=== PATIENT | female | born 1985 | race Caucasian/White ===

== ENCOUNTER 2017-01-29 05:16 | Emergency (ER) | payer MEDICAID, OTHER ==
[~2017-01-29] VITALS: Ht 162.6 cm; Wt 82.9 kg
[2017-01-29 05:23] VITALS: BP 153/77; PULSE 59; RESP 20; TEMP 97.8; O2SAT 100
[2017-01-29 05:34] VITALS: BP 153/77; PULSE 59; RESP 20; TEMP 97.8; O2SAT 100
[2017-01-29] MEDS ORDERED: PREN29TA PO (05:34)
[2017-01-29 06:07] LABS: AUTOMATED NEUTROPHIL # 8.7 TH/MM3 (1.8-7.7); BASOPHIL # 0.1 TH/MM3 (0-0.2); BASOPHIL % 0.5 % (0.0-2.0); EOSINOPHIL # 0.5 TH/MM3 (0-0.4); EOSINOPHIL % 4.3 % (0.0-4.0); HEMATOCRIT 38.7 % (35.0-46.0); HEMO FLAGS DIFF FINAL; LYMPH % 14.3 % (9.0-44.0); LYMPHOCYTE # 1.6 TH/MM3 (1.0-4.8); MEAN CELL VOLUME 84.5 FL (80.0-100.0); MEAN CORPUSCULAR HEMOGLOBIN 28.4 PG (27.0-34.0); MEAN CORPUSCULAR HGB CONC 33.6 % (32.0-36.0); MONO % 5.6 % (0.0-8.0); NEUT % 75.3 % (16.0-70.0); PLATELET COUNT 239 TH/MM3 (150-450); RED BLOOD COUNT 4.58 MIL/MM3 (4.00-5.30); WHITE BLOOD COUNT 11.5 TH/MM3 (4.0-11.0)
[2017-01-29 06:16] LABS: CHLORIDE 107 MEQ/L (98-107); POTASSIUM 3.7 MEQ/L (3.5-5.1); SODIUM (NA) 136 MEQ/L (136-145)
[2017-01-29 06:19] LABS: ANION GAP 7 MEQ/L (5-15); BICARBONATE 22.4 MEQ/L (21.0-32.0); BLOOD UREA NITROGEN 6 MG/DL (7-18)
--- NOTE | 2017-01-29 06:21 | PD ---
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 The patient is now having watery diarrhea. She has had diarrhea 3 times in the last 24 hours. She denies any abdominal pain, nausea, vomiting or fever. She is 25 weeks . FORMERLY [facility], [facility]–1983 Past Medical History Reproductive: Yes (CURRENTLY 25 WEEKS ) Immunizations Current: Yes Tetanus Vaccination: > 5 Years Influenza Vaccination: Yes ?: : 1 Past Surgical History Other Surgery: Yes (BREAST AUGMENTATION) Social History Alcohol Use: No Tobacco Use: No Substance Use: No Allergies-Medications (Allergen,Severity, Reaction): Coded Allergies: No Known Allergies (Unverified , 01/29/17) Reported Meds & Prescriptions Reported Meds & Active Scripts Active Reported Plus Iron 29-1 mg ( Vit-Iron Carbonyl) 29 Mg Iron-1 Mg Tab 1 Tab PO DAILY Review of Systems Except as stated in HPI: all other systems reviewed are Neg Physical Exam Narrative GENERAL: The patient is alert, oriented 3, fairly well-hydrated appearing in no apparent distress. Her vital signs show blood pressure 153/77 but are otherwise normal. SKIN: Focused skin assessment warm/dry. HEAD: Atraumatic. Normocephalic. EYES: Pupils equal and round. No scleral icterus. No injection or drainage. ENT: No nasal bleeding or discharge. Mucous membranes pink and moist. NECK: Trachea midline. No JVD. CARDIOVASCULAR: Regular rate and rhythm. No murmur appreciated. RESPIRATORY: No accessory muscle use. Clear to auscultation. Breath sounds equal bilaterally. GASTROINTESTINAL: Abdomen soft, non-tender, nondistended. Hepatic and splenic margins not palpable. No guarding or rebound is present. MUSCULOSKELETAL: No obvious deformities. No clubbing. No cyanosis. No edema. NEUROLOGICAL: Awake and alert. No obvious cranial nerve deficits. Motor grossly within normal limits. Normal speech. PSYCHIATRIC: Appropriate mood and affect; insight and judgment normal. Data Data Last Documented VS Vital Signs Date Time Temp Pulse Resp B/P (MAP) Pulse Ox O2 Delivery O2 Flow Rate FiO2 01/29/17 05:34 97.8 59 20 153/77 (102) 100 Orders Orders Complete Blood Count With Diff (01/29/17 05:43) Comprehensive Metabolic Panel (01/29/17 05:43) C Diff Toxin Pcr (01/29/17 05:43) Rotavirus Ag Detection (Stool) (01/29/17 05:49) Enteric Path (Stool) (01/29/17 05:49) Giardia Antigen (Stool) (01/29/17 05:49) Labs Laboratory Tests Test 01/29/17 05:55 White Blood Count 11.5 TH/MM3 Red Blood Count 4.58 MIL/MM3 Hemoglobin 13.0 GM/DL Hematocrit 38.7 % Mean Corpuscular Volume 84.5 FL Mean Corpuscular Hemoglobin 28.4 PG Mean Corpuscular Hemoglobin Concent 33.6 % Red Cell Distribution Width 12.0 % Platelet Count 239 TH/MM3 Mean Platelet Volume 9.1 FL Neutrophils (%) (Auto) 75.3 % Lymphocytes (%) (Auto) 14.3 % Monocytes (%) (Auto) 5.6 % Eosinophils (%) (Auto) 4.3 % Basophils (%) (Auto) 0.5 % Neutrophils # (Auto) 8.7 TH/MM3 Lymphocytes # (Auto) 1.6 TH/MM3 Monocytes # (Auto) 0.6 TH/MM3 Eosinophils # (Auto) 0.5 TH/MM3 Basophils # (Auto) 0.1 TH/MM3 CBC Comment DIFF FINAL Differential Comment Blood Urea Nitrogen 6 MG/DL Creatinine 0.55 MG/DL Random Glucose 88 MG/DL Total Protein 6.6 GM/DL Albumin 2.7 GM/DL Calcium Level 8.2 MG/DL Alkaline Phosphatase 109 U/L Aspartate Amino Transf (AST/SGOT) 15 U/L Alanine Aminotransferase (ALT/SGPT) 19 U/L Total Bilirubin 0.2 MG/DL Sodium Level 136 MEQ/L Potassium Level 3.7 MEQ/L Chloride Level 107 MEQ/L Carbon Dioxide Level 22.4 MEQ/L Anion Gap 7 MEQ/L Estimat Glomerular Filtration Rate 128 ML/MIN [facility] Medical Decision Making Medical Screen Exam Complete: Yes Emergency Medical Condition: Yes Medical Record Reviewed: Yes Differential Diagnosis Clostridium difficile, viral gastroenteritis, rotavirus-unlikely, Giardia- unlikely, bacterial enteritis, electrolyte disorder Narrative Course The patient does not want to remain here in [place] for several hours, this is likely the time but will take her C. difficile results to come back to us. The specimen has to be sent from this hospital to [facility]. We are testing her for clostridium difficile, Giardia, routine stool pathogens and rotavirus. Metronidazole is category B and the patient is 25 weeks and should be safe for this patient. The patient will get a prescription for metronidazole to take if it is positive for clostridium difficile. It is suggested she may wish to talk it over with Dr. Desai, her mail room clerk before taking metronidazole. Diagnosis Primary Impression: Infectious diarrhea in adult patient Med/Other Pt SpecificInfo: Prescription(s) given Scripts Metronidazole (Metronidazole) 500 Mg Tab 500 MG PO TID for Infection for 10 Days, TAB 0 Refills Prov: Len Horn MD 01/29/17 Disposition: 01 DISCHARGE HOME Condition: Stable Len Horn MD Jan 29, 2017 06:20
[2017-01-29 06:22] LABS: ALT (GPT) 19 U/L (10-53); AST (GOT) 15 U/L (15-37)
[2017-01-29 06:23] LABS: GLOMERULAR FILTRATION RATE 128 ML/MIN (>89)
[2017-01-29 06:24] LABS: TOTAL BILIRUBIN ADULT 0.2 MG/DL (0.2-1.0)
[2017-01-29 06:25] LABS: ALKALINE PHOSPHATASE 109 U/L (45-117)
[2017-01-29] MEDS ORDERED: METR1TAB76 PO (06:29)
[2017-01-29 07:01] VITALS: BP 145/70; PULSE 60; RESP 18; O2SAT 100
[2017-01-29 09:39] LABS: C. DIFF EPI 027 PRESUMPTIVE NEGATIVE (NEGATIVE)
== END 2017-01-29 07:04 | disposition home or self-care (01) ==
LOC: PHED 05:16
DX: O26.892 Other specified pregnancy related conditions, second trimester (principal); A09 Infectious gastroenteritis and colitis, unspecified; Z3A.25 25 weeks gestation of pregnancy
CPT/HCPCS: 80053; 85025; 87329; 87425; 87493; 87506; 99283

== ENCOUNTER 2017-02-13 15:15 | Emergency (ER) | payer OTHER ==
[~2017-02-13 15:15] MED LIST: METR1TAB76 PO; PREN29TA PO
--- NOTE | 2017-02-13 16:04 | PD ---
HPI Chief Complaint swelling, concerned she has preE Date Seen: Feb 13, 2017 Time Seen: 15:59 Travel History International Travel<30 Days: No Contact w/Intl Traveler<30Days: No Known Affected Area: No History of Present Illness HPI Pt is a 31y/o G1 @ 27.2wks. She has PNC with Dr. Reeves. She states that since Monday her feet have been very swollen to the point of "being shiny". She has a famhx of HTN and preE and states that she took her BP over the weekend at [facility] (after resting 10 mins) and it was 140s/90s. She had a colleague check her today and states it was 140/80. She states normal for her is 130s/80s. She denies DELGADO but states over the weekend she looked at her phone and "saw black spots". No LOF, VB, ctx. +FM. Weeks Gestation: 27 Para: 0 : 1 History Past Medical History Medical History: Denies Significant Hx Obstetric History Obstetric History 1. current Past Surgical History Narrative Surgical breast augmentation wisdom teeth extraction Family History Narrative Family History HTN Social History Alcohol Use: No Tobacco Use: No Substance Abuse: No Allergies-Medications (Allergen,Severity, Reaction): Coded Allergies: No Known Allergies (Unverified , 01/29/17) Home Meds Active Scripts Metronidazole (Metronidazole) 500 Mg Tab, 500 MG PO TID for Infection for 10 Days, TAB 0 Refills Prov:Len Horn MD 01/29/17 Reported Medications Vit-Iron Carbonyl ( Plus Iron 29-1 mg) 29 Mg Iron-1 Mg Tab, 1 TAB PO DAILY for Nutritional Supplement, #30 TAB 0 Refills 01/29/17 Review of Systems Except as stated in HPI: all other systems reviewed are Neg Physical Exam Narrative General: well developed, well nourished, no acute distress HEENT: normocephalic atraumatic, extraocular movements intact, neck supple Abdomen: soft, gravid, nontender, nondistended Extremities: full range of motion, no edema, no clonus, 2+ reflexes Skin: normal coloration, no rashes, no suspicious skin lesions noted Neurologic: cranial nerves 2-12 grossly intact, normal muscle tone, normal gait Psychiatric: normal mood and affect, appropriate FHTs: 145, +accels, no decels, moderate variability, age appropriate, reactive [place]: quiet Cvx: deferred Data Data Vital Signs Reviewed: Yes Orders Orders Vital Signs (Adult) .ON ADMISSION (02/13/17 15:57) ^ Labor Status (02/13/17 15:57) Urinalysis - C+S If Indicated (02/13/17 15:57) ^ Non Stress Test (02/13/17 15:57) Cbc No Diff, Includes Plts (02/13/17 15:57) MDM Plan 31y/o G1 @ 27.2wks with swelling and elevated BP. -- pt reports swelling is gone since arrive to triage -- initial BP 150s/80s then recheck 130s/70s -- PIH labs ordered -- pt asx -- FHTs cat 1 Diagnosis Diagnosis: Primary Impression: 27 weeks gestation of Additional Impressions: Bilateral swelling of feet Elevated blood pressure affecting in second trimester, antepartum Analia John MD Feb 13, 2017 16:04
[2017-02-13 16:18] LABS: BACTERIA, URINE RARE /hpf; BLOOD, URINE NEG (NEG); COMMENT (UR) CULT NOT INDICATED; CULTURE IF INDICATED CULT NOT INDICATED; GLUCOSE,URINE NEG (NEG); KETONE, URINE NEG (NEG); NITRITE,URINE NEG (NEG); PH, URINE 6.5 (5.0-8.5); SQUAMOUS EPITHELIAL CELL URINE 1 /hpf (0-5); URINE COLOR LIGHT-YELLOW (YELLW/STRAW)
[2017-02-13 16:19] LABS: HEMATOCRIT 34.1 % (35.0-46.0); MEAN CELL VOLUME 84.8 FL (80.0-100.0); MEAN CORPUSCULAR HGB CONC 34.2 % (32.0-36.0); PLATELET COUNT 226 TH/MM3 (150-450); RED BLOOD COUNT 4.02 MIL/MM3 (4.00-5.30); RED CELL DISTRIBUTION WIDTH 12.7 % (11.6-17.2); REVIEW FLAG FINAL; WHITE BLOOD COUNT 11.6 TH/MM3 (4.0-11.0)
[2017-02-13 16:28] VITALS: BP 137/87; PULSE 62
[2017-02-13 16:29] VITALS: RESP 18
[2017-02-13 16:30] VITALS: BP 139/88; PULSE 70
[2017-02-13 16:30] LABS: ALT (GPT) 23 U/L (10-53); ANION GAP 8 MEQ/L (5-15); AST (GOT) 17 U/L (15-37); BICARBONATE 22.3 MEQ/L (21.0-32.0); BLOOD UREA NITROGEN 7 MG/DL (7-18); CHLORIDE 106 MEQ/L (98-107); GLOMERULAR FILTRATION RATE 104 ML/MIN (>89); POTASSIUM 3.9 MEQ/L (3.5-5.1); SODIUM (NA) 136 MEQ/L (136-145)
[2017-02-13 16:32] LABS: ALKALINE PHOSPHATASE 140 U/L (45-117); TOTAL BILIRUBIN ADULT 0.1 MG/DL (0.2-1.0)
[2017-02-13 16:45] VITALS: BP 129/80; PULSE 59
== END 2017-02-13 16:58 | disposition home or self-care (01) ==
LOC: HOBED 15:15
DX: O16.2 Unspecified maternal hypertension, second trimester (principal); O26.892 Other specified pregnancy related conditions, second trimester; R22.43 Localized swelling, mass and lump, lower limb, bilateral; H53.8 Other visual disturbances; Z3A.27 27 weeks gestation of pregnancy
CPT/HCPCS: 80053; 81001; 82570; 84156; 85027; 99284

== ENCOUNTER 2017-03-07 12:19 | Inpatient (IN) | payer OTHER ==
[~2017-03-07] VITALS: Ht 162.6 cm; Wt 90.0 kg
[2017-03-07] VITALS (23 sets, daily range): BP systolic 129–176; BP diastolic 74–100; PULSE 62–107; RESP 18–20; TEMP 98.4–98.7
--- NOTE | 2017-03-07 12:56 | PD ---
HPI Chief Complaint Elevated blood pressure in the office Date Seen: Mar 07, 2017 Time Seen: 12:54 Travel History International Travel<30 Days: No Contact w/Intl Traveler<30Days: No Known Affected Area: No History of Present Illness HPI 31-year-old who is at 30 weeks and 3 days was seen in the office today with elevated blood pressure. Patient was seen earlier in January with a blood pressure elevation in the OB ED with improvement all she was here and normal blood work and a normal protein creatinine ratio. Patient states that she has had peripheral edema but no other signs or symptoms and she is continuing to work full-time. Weeks Gestation: 30 (30.3) Para: 0 : 3 History Past Medical History Medical History: Denies Significant Hx Past Surgical History Narrative Surgical Breast augmentation tooth extraction Family History Narrative Family History Hypertension Social History Alcohol Use: No Tobacco Use: No Substance Abuse: No Allergies-Medications (Allergen,Severity, Reaction): Coded Allergies: No Known Allergies (Unverified , 01/29/17) Home Meds Reported Medications Vit-Iron Carbonyl ( Plus Iron 29-1 mg) 29 Mg Iron-1 Mg Tab, 1 TAB PO DAILY for Nutritional Supplement, #30 TAB 0 Refills 01/29/17 Discontinued Scripts Metronidazole (Metronidazole) 500 Mg Tab, 500 MG PO TID for Infection for 10 Days, TAB 0 Refills Prov:Len Horn MD 01/29/17 Review of Systems Except as stated in HPI: all other systems reviewed are Neg Physical Exam Narrative GENERAL: Well-nourished, well-developed patient. SKIN: Warm and dry. HEAD: Normocephalic and atraumatic. EYES: No scleral icterus. No injection or drainage. ENT: No nasal drainage noted. Mucous membranes pink. Airway patent. NECK: Supple, trachea midline. No JVD. CARDIOVASCULAR: Regular rate and rhythm without murmurs, gallops, or rubs. RESPIRATORY: Breath sounds equal bilaterally. No accessory muscle use. ABDOMEN/GI: Abdomen soft, non-tender, bowel sounds present, no rebound, no guarding Gravid to [-30] weeks size Fundal Height: [-] GENITOURINARY: Deferred External Genitalia: intact and normal in appearance BUS glands: [-] Cervix: [-] Dilatation: [-] Effacement: [-] Station: [-] Presentation: [-] Membranes: [intact or ruptured] Uterine Contractions: [-] FHT's: Category: [-1] Baseline: [-140] Reactive: [-Moderate] Variability: [Moderate-] Decels: [-Absent] EXTREMITIES: No cyanosis 1+ edema BACK: Nontender without obvious deformity. No CVA tenderness. NEUROLOGICAL: Awake and alert. Motor and sensory grossly within normal limits. Five out of 5 muscle strength in all muscle groups. Normal speech. Data Data Vital Signs Reviewed: Yes Orders Orders Vital Signs (Adult) .ON ADMISSION (03/07/17 12:52) ^ Labor Status (03/07/17 12:52) Urinalysis - C+S If Indicated (03/07/17 12:52) ^ Non Stress Test (03/07/17 12:52) Diet Liquid (03/07/17 Lunch) Cbc No Diff, Includes Plts (03/07/17 12:52) Comprehensive Metabolic Panel (03/07/17 12:52) Uric Acid (03/07/17 12:52) Protein Creat Ratio, Random Ur (03/07/17 12:52) Labs Laboratory Tests Test 03/07/17 12:45 03/07/17 12:57 Urine Color YELLOW Urine Turbidity CLEAR Urine pH 6.0 Urine Specific Craig 1.010 Urine Protein 30 mg/dL Urine Glucose (UA) NEG mg/dL Urine Ketones NEG mg/dL Urine Occult Blood NEG Urine Nitrite NEG Urine Bilirubin NEG Urine Urobilinogen LESS THAN 2.0 MG/DL Urine Leukocyte Esterase NEG Urine RBC LESS THAN 1 /hpf Urine WBC 2 /hpf Urine Squamous Epithelial Cells 1 /hpf Urine Bacteria RARE /hpf Microscopic Urinalysis Comment CULT NOT INDICATED White Blood Count 9.6 TH/MM3 Red Blood Count 4.26 MIL/MM3 Hemoglobin 12.4 GM/DL Hematocrit 36.4 % Mean Corpuscular Volume 85.3 FL Mean Corpuscular Hemoglobin 29.0 PG Mean Corpuscular Hemoglobin Concent 34.0 % Red Cell Distribution Width 13.3 % Platelet Count 202 TH/MM3 Mean Platelet Volume 10.9 FL Urine Random Creatinine 81 MG/DL Urine Random Total Protein 32 MG/DL Urine Protein/Creatinine Ratio 0.40 Blood Urea Nitrogen 13 MG/DL Creatinine 0.96 MG/DL Random Glucose 107 MG/DL Total Protein 6.1 GM/DL Albumin 2.6 GM/DL Calcium Level 8.2 MG/DL Uric Acid 6.1 MG/DL Alkaline Phosphatase 199 U/L Aspartate Amino Transf (AST/SGOT) 63 U/L Alanine Aminotransferase (ALT/SGPT) 111 U/L Total Bilirubin 0.2 MG/DL Sodium Level 139 MEQ/L Potassium Level 3.9 MEQ/L Chloride Level 107 MEQ/L Carbon Dioxide Level 23.1 MEQ/L Anion Gap 9 MEQ/L Estimat Glomerular Filtration Rate 67 ML/MIN [facility] Medical Record Reviewed: Yes Plan 31-year-old patient at 30 weeks and 3 days with elevated blood pressure, elevated protein creatinine ratio, elevated liver enzymes most consistent with preeclampsia Will order steroids and ultrasound for growth Repeat bloodwork Admission to the hospital, Dr. Reeves is aware Diagnosis Diagnosis: Primary Impression: Pre-eclampsia affecting , antepartum Additional Impression: 30 weeks gestation of Gabi Kendall MD Mar 07, 2017 12:56
[2017-03-07 13:47] LABS: HEMATOCRIT 36.4 % (35.0-46.0); HEMOGLOBIN 12.4 GM/DL (11.6-15.3); MEAN CELL VOLUME 85.3 FL (80.0-100.0); MEAN PLATELET VOLUME 10.9 FL (7.0-11.0); PLATELET COUNT 202 TH/MM3 (150-450); RED BLOOD COUNT 4.26 MIL/MM3 (4.00-5.30); RED CELL DISTRIBUTION WIDTH 13.3 % (11.6-17.2); WHITE BLOOD COUNT 9.6 TH/MM3 (4.0-11.0)
[2017-03-07 13:51] LABS: BACTERIA, URINE RARE /hpf; BILIRUBIN, URINE NEG (NEG); BLOOD, URINE NEG (NEG); GLUCOSE,URINE NEG (NEG); KETONE, URINE NEG (NEG); NITRITE,URINE NEG (NEG); SQUAMOUS EPITHELIAL CELL URINE 1 /hpf (0-5); URINE COLOR YELLOW (YELLW/STRAW); URINE LEUKOCYTE ESTERASE NEG (NEG)
[2017-03-07 14:07] LABS: ALBUMIN 2.6 GM/DL (3.4-5.0); ALT (GPT) 111 U/L (10-53); AST (GOT) 63 U/L (15-37); BICARBONATE 23.1 MEQ/L (21.0-32.0); BLOOD UREA NITROGEN 13 MG/DL (7-18); CALCIUM 8.2 MG/DL (8.5-10.1); CHLORIDE 107 MEQ/L (98-107); CREATININE 0.96 MG/DL (0.50-1.00); GLOMERULAR FILTRATION RATE 67 ML/MIN (>89); GLUCOSE,RANDOM 107 MG/DL (74-106); SODIUM (NA) 139 MEQ/L (136-145)
[2017-03-07 14:13] LABS: ALKALINE PHOSPHATASE 199 U/L (45-117); TOTAL BILIRUBIN ADULT 0.2 MG/DL (0.2-1.0); TOTAL PROTEIN 6.1 GM/DL (6.4-8.2)
[2017-03-07] MEDS ORDERED: LACTATED RINGER'S 1000 ML INJ 1,000 ML IV SCH (14:26)
[2017-03-07] MEDS ORDERED: ONDANSETRON HCL 4 MG/2 ML VIAL IV PUSH PRN (14:30)
[2017-03-07] MEDS ORDERED: ZOLPIDEM TARTRATE 5 MG TAB PO PRN (14:30)
[2017-03-07] MEDS ORDERED: ONDANSETRON ODT 4 MG TAB PO PRN (14:30)
[2017-03-07] MEDS ORDERED: DOCUSATE SODIUM 100 MG CAP PO PRN (14:30)
[2017-03-07] MEDS ORDERED: SODIUM CHLORIDE 0.9% FLUSH 10 ML FLUSH IV FLUSH PRN (14:30)
[2017-03-07] MEDS ORDERED: ACETAMINOPHEN 325 MG TAB PO PRN (14:30)
[2017-03-07] MEDS ORDERED: CALCIUM GLUCONATE 10% 1 GM/10 ML VIAL IV PUSH PRN ×2 (14:30→17:45)
[2017-03-07] MEDS: BETAMETHASONE SOD PHOS/ACETATE SUSP 30 MG/5 ML VIAL IM SCH (14:41)
[2017-03-07] MEDS ORDERED: NIFEdipine 10 MG CAP ONE ×2 (17:08→17:19)
[2017-03-07] MEDS ORDERED: NIFEdipine 10 MG CAP PO SCH (17:10)
[2017-03-07] MEDS ORDERED: NIFEdipine 20 MG CAP PO PRN (17:25)
[2017-03-07] MEDS ORDERED: MAGNESIUM SULFATE 40 GM PREMIX 1,000 ML IV SCH (17:41)
[2017-03-07] MEDS: LACTATED RINGER'S 1000 ML INJ 1,000 ML IV SCH (20:48)
[2017-03-07] MEDS: SODIUM CHLORIDE 0.9% FLUSH 10 ML FLUSH IV FLUSH SCH (21:00)
[2017-03-08] VITALS (32 sets, daily range): BP systolic 122–154; BP diastolic 65–107; PULSE 63–108; RESP 16–20; TEMP 97.6–98.2; O2SAT 98–100
[2017-03-08 05:53] LABS: HEMATOCRIT 40.1 % (35.0-46.0); HEMOGLOBIN 13.5 GM/DL (11.6-15.3); MEAN CELL VOLUME 85.5 FL (80.0-100.0); MEAN CORPUSCULAR HEMOGLOBIN 28.7 PG (27.0-34.0); MEAN CORPUSCULAR HGB CONC 33.5 % (32.0-36.0); PLATELET COUNT 229 TH/MM3 (150-450); RED CELL DISTRIBUTION WIDTH 13.4 % (11.6-17.2); WHITE BLOOD COUNT 18.8 TH/MM3 (4.0-11.0)
[2017-03-08 06:17] LABS: ALBUMIN 2.9 GM/DL (3.4-5.0); ALT (GPT) 163 U/L (10-53); AST (GOT) 81 U/L (15-37); BICARBONATE 19.2 MEQ/L (21.0-32.0); BLOOD UREA NITROGEN 12 MG/DL (7-18); CALCIUM 8.2 MG/DL (8.5-10.1); CHLORIDE 104 MEQ/L (98-107); GLOMERULAR FILTRATION RATE 83 ML/MIN (>89); GLUCOSE,RANDOM 123 MG/DL (74-106); SODIUM (NA) 135 MEQ/L (136-145)
[2017-03-08 06:19] LABS: ALKALINE PHOSPHATASE 233 U/L (45-117); TOTAL BILIRUBIN ADULT 0.2 MG/DL (0.2-1.0); TOTAL PROTEIN 7.1 GM/DL (6.4-8.2)
[2017-03-08] MEDS: BETAMETHASONE SOD PHOS/ACETATE SUSP 30 MG/5 ML VIAL IM SCH (08:31)
[2017-03-08] MEDS ORDERED: MULTIVIT/MIN/PREN/FOL AC/IRON PRENATAL TAB PO SCH (09:00)
[2017-03-08] MEDS: SODIUM CHLORIDE 0.9% FLUSH 10 ML FLUSH IV FLUSH SCH ×2 (09:00→21:00)
[2017-03-08] MEDS: LACTATED RINGER'S 1000 ML INJ 1,000 ML IV SCH ×2 (09:15→20:36)
[2017-03-08] MEDS ORDERED: CITRIC ACID-SODIUM CITRATE LIQ 30 ML UDC ONE (11:12)
[2017-03-08] MEDS ORDERED: MORPHINE SULFATE PF 5 MG/10 ML VIAL ONE (11:16)
[2017-03-08] MEDS ORDERED: EPIDURAL-DO NOT ADMINISTER ANTICOAGULANTS PRN (11:28)
[2017-03-08] MEDS ORDERED: CITRIC ACID-SODIUM CITRATE LIQ 30 ML UDC PO SCH (12:00)
[2017-03-08] MEDS ORDERED: ceFAZolin 2 GM PREMIX 50 ML IV SCH (12:00)
[2017-03-08] MEDS ORDERED: LACTATED RINGER'S 1000 ML IV ONE (12:00)
[2017-03-08] MEDS ORDERED: LACTATED RINGER'S 1000 ML IV SCH (12:30)
[2017-03-08] MEDS ORDERED: SIMETHICONE 80 MG CHEWABLE TAB PO PRN (13:00)
[2017-03-08] MEDS ORDERED: OXYTOCIN 30 UNITS-500ML PREMIX 500 ML IV ONE (13:00)
[2017-03-08] MEDS ORDERED: ONDANSETRON HCL 4 MG/2 ML VIAL IV PUSH PRN (13:00)
[2017-03-08] MEDS ORDERED: ZOLPIDEM TARTRATE 5 MG TAB PO PRN (13:00)
[2017-03-08] MEDS ORDERED: SODIUM CHLORIDE 0.9% FLUSH 10 ML FLUSH IV FLUSH PRN (13:00)
[2017-03-08] MEDS ORDERED: oxyCODONE/ACETAMINOPHEN 5 MG/325 MG TAB PO PRN ×2 (13:00)
[2017-03-08] MEDS ORDERED: MAGNESIUM SULFATE 40 GM ONE (13:21)
[2017-03-08] MEDS ORDERED: CALCIUM GLUCONATE 10% 1 GM/10 ML VIAL IV PUSH PRN (14:00)
[2017-03-08] MEDS ORDERED: ACETAMINOPHEN 1000 MG/100 ML 65 ML IV ONE (14:00)
[2017-03-08] MEDS ORDERED: MAGNESIUM SULFATE 40 GM PREMIX 1,000 ML IV SCH (14:00)
[2017-03-08] MEDS ORDERED: diphenhydrAMINE HCL 50 MG/ML VIAL ONE (14:24)
[2017-03-08] MEDS ORDERED: EPIDURAL-DIPHENHYDRAMINE HCL 50 MG/ML VIAL IV PUSH PRN (15:15)
[2017-03-08] MEDS ORDERED: EPIDURAL-DIPHENHYDRAMINE HCL 50 MG CAP PO PRN (15:15)
[2017-03-08] MEDS ORDERED: EPIDURAL-NALOXONE HCL 0.4 MG/ML AMP IV PUSH PRN (15:15)
[2017-03-08] MEDS ORDERED: EPIDURAL-NO SYSTEMIC NARCOTICS PRN (15:15)
--- NOTE | 2017-03-08 20:07 | MH ---
cc: ELINA REEVES DATE OF ADMISSION 03/07/2017 REASON FOR ADMISSION Hypertension with proteinuria, rule out severe preeclampsia. HISTORY OF THE PRESENT ILLNESS Maricarmen is a 33-year-old white female para 0-0-0-0 whose last menstrual period and ultrasound put her at a little over 30 weeks. She presents to the office on Monday with elevated blood pressure and a little protein in her urine. She was sent over to labor and delivery for laboratory workup to ensure she did not have preeclampsia. She is having continued high blood pressure. She does have proteinuria. We will wait for her labs and decide on the course of action. PAST OB HISTORY She is para 0-0-0-0. GYNECOLOGIC HISTORY Her Pap smear was normal in 07/2016. Her Chlamydia, gonorrhea and trichomonas are negative. PAST MEDICAL HISTORY Negative. PAST SURGICAL HISTORY Is remarkable for an augmentation mammoplasty. SOCIAL HISTORY Never smoker. Nondrinker. She does not take drugs. She lives with her domestic partner. FAMILY HISTORY Noncontributory. ALLERGIES NO KNOWN DRUG ALLERGIES. MEDICATIONS Her current medications: vitamins one p.o. q.day. REVIEW OF SYSTEMS She does not have any headaches, scotoma. She has no shortness of breath, chest pressure or chest pain. She has no upper abdominal pain. No right upper quadrant pain. The OB she reports good movement. She denies bleeding or rupture of membranes. She denies any swelling. ASSESSMENT AND PLAN 1. Intrauterine at 30+ weeks. 2. Hypertension with proteinuria. I suspect she may have preeclampsia. Will have to get her lab work and decide on the course of action. She actually may be severe because her blood pressures are quite high. We plan to monitor her blood pressure, repeat her labs in the morning and go from there. R. Elina Reeves MD RJV/KK /7:13 PM /7:42 PM
[2017-03-08] MEDS ORDERED: OXYTOCIN 30 UNITS-500ML PREMIX 500 ML IV PRN (23:00)
[2017-03-09] VITALS (15 sets, daily range): BP systolic 119–153; BP diastolic 64–99; PULSE 58–80; RESP 16–18; TEMP 97.8–98.3; O2SAT 97
[2017-03-09 06:00] LABS: HEMOGLOBIN 10.8 GM/DL (11.6-15.3); MEAN CELL VOLUME 85.7 FL (80.0-100.0); MEAN CORPUSCULAR HEMOGLOBIN 28.1 PG (27.0-34.0); MEAN CORPUSCULAR HGB CONC 32.8 % (32.0-36.0); MEAN PLATELET VOLUME 10.6 FL (7.0-11.0); PLATELET COUNT 227 TH/MM3 (150-450); RED BLOOD COUNT 3.85 MIL/MM3 (4.00-5.30); RED CELL DISTRIBUTION WIDTH 13.4 % (11.6-17.2); WHITE BLOOD COUNT 34.8 TH/MM3 (4.0-11.0)
--- NOTE | 2017-03-09 07:07 | MP ---
cc: Sarbjit REEVES DATE OF SURGERY 03/08/2017 PREOPERATIVE DIAGNOSIS 1. Intrauterine at 30+ weeks 2. Severe preeclampsia 3. Non-inducible cervix POSTOPERATIVE DIAGNOSIS 1. Intrauterine at 30+ weeks 2. Severe preeclampsia 3. Non-inducible cervix 4. A lower uterine segment fibroid PROCEDURE A primary low transverse section and a myomectomy. ANESTHESIA Spinal SURGEON Quita Reeves MD FINDINGS Gravid uterus, a 30-week male infant, 's 7 and 8. The weight was 1230 grams. The fallopian tubes were normal. The ovaries were normal. Posterior and anterior cul-de-sac were normal. She did have a 3 cm fibroid directly over the lower uterine segment. COMPLICATIONS None COUNTS Counts were correct. ESTIMATED BLOOD LOSS 600 cc FLUIDS Crystalloids CONDITION The patient tolerated the procedure well, went to the recovery room in good condition. INDICATIONS FOR THIS PROCEDURE This is a young lady who came into the office yesterday with high blood pressure. We sent her over to labor and delivery for a workup of preeclampsia. She was found to have a significantly high blood pressure requiring medicine one-time for a blood pressure of greater than 160/110. Her blood pressures remained high. She had protein in her urine. Her liver function tests were markedly elevated. Her ALT went from 111-163 and her AST went from 63-81. I discussed this case in detail with the perinatologist. Because she had increased liver functions, very high blood pressure, protein in her urine, uric acid of 6.2, she felt that she needed to be delivered as I did. After discussing the risks and benefits and the reasoning for delivery of this baby so early with the patient, she agreed to proceed. PROCEDURE The patient was taken to the operating room, identified by name band and verbally. She was given a spinal anesthetic, prepped and draped in the usual sterile fashion for section. A time-out was taken and a Pfannenstiel incision was taken down to the fascia. Small bleeders were coagulated with the Bovie. The fascia was taken off the rectus muscle by blunt sharp dissection. The rectus muscles were already opened and the peritoneum was grasped with a hemostat so the peritoneum was opened under direct vision without difficulty. The incision was extended with care to avoid the urinary bladder. At this time, we noted there was a fibroid right over the lower uterine segment. I did not want to do a low vertical section so we made the incision around the fibroid and made a bladder flap, pushed the bladder out of harm's way, slowly dissected the fibroid away from the lower uterine segment pushing it downwards so we could make the incision. The incision was made into the lower uterine segment which was thick and not developed until the uterine cavity was entered. The uterine incision was extended with the surgeon's fingers and the vertex was grasped gently and with fundal pressure, delivered without difficulty. Hypopharynx and nasopharynx were suctioned gently. The remainder of the infant was delivered and the cord clamping was delayed 45 seconds. Cord was doubly clamped and cut and the baby was handed to the resuscitation team present. The cord blood was obtained. The placenta was delivered from the uterus. The uterus was curettaged twice. There was some bleeding from the edges of the scar and these were clamped with Hernandez clamps and the fibroid needed to be removed because I needed to close this incision and it was directly below the incision. At this point, I grasped the fibroid with a Chris and shelled it out without difficulty. The uterine incision could now easily be closed. It was closed with 0 Vicryl in a running fashion. The first layer was running locking, the second layer imbricating the first layer in a running fashion. At this point, there was a small bleeder which was tied off with a 3-0 chromic suture. The cul-de-sac and gutters were cleaned of blood and debris and a little bit of irrigation was used. The uterus was then delivered back into the abdomen and the rectus muscles were reapproximated using 0 Vicryl in a running fashion. The fascia was repaired in 0 Vicryl in a running fashion. Subcu was irrigated and small bleeders coagulated and closed with a 2-0 Vicryl in a subcuticular fashion. The skin was repaired with a 4-0 Monocryl in a subcutaneous fashion with excellent results. R. MD MANDA Coyle/CARRILLO /1:00 PM /6:47 AM
[2017-03-09 07:14] LABS: BANDS 3 % (0-6); LYMPHOCYTES 3 % (9-44); MONOCYTES 5 % (0-8); POLYS (SEG NEUTROPHILS) 89 % (16-70)
[2017-03-09] MEDS: SODIUM CHLORIDE 0.9% FLUSH 10 ML FLUSH IV FLUSH SCH (09:00)
[2017-03-09] MEDS: MULTIVIT/MIN/PREN/FOL AC/IRON PRENATAL TAB PO SCH (09:15)
[2017-03-09] MEDS: LACTATED RINGER'S 1000 ML INJ 1,000 ML IV SCH (09:15)
[2017-03-09] MEDS: IBUPROFEN 600 MG TAB PO PRN ×2 (15:29→21:23)
--- NOTE | 2017-03-09 15:42 | HHI.OB ---
Subjective Post Operative Day: 1 Objective Vitals/I&O Vital Signs Date Time Temp Pulse Resp B/P (MAP) Pulse Ox O2 Delivery O2 Flow Rate FiO2 03/09/17 12:00 71 142/99 (113) 03/09/17 11:00 147/91 (109) 03/09/17 11:00 69 152/95 (114) 03/09/17 10:00 140/89 (106) 03/09/17 09:00 62 129/73 (91) 03/09/17 07:43 97.8 03/09/17 07:00 16 03/09/17 07:00 58 143/89 (107) 03/09/17 06:10 72 153/93 (113) 03/09/17 05:00 63 147/82 (103) 03/09/17 04:00 67 141/90 (107) 03/09/17 03:00 68 132/81 (98) 03/09/17 03:00 97.8 16 03/09/17 02:00 63 132/85 (101) 03/09/17 01:00 66 16 119/64 (82) 03/09/17 00:00 80 148/92 (110) 03/08/17 23:00 131/72 (91) 03/08/17 23:00 66 03/08/17 22:10 63 122/65 (84) 03/08/17 19:55 18 03/08/17 19:52 97.7 03/08/17 19:52 64 144/82 (102) 03/08/17 18:00 68 18 138/84 (102) 03/08/17 17:00 100 03/08/17 17:00 86 18 138/71 (93) 03/08/17 17:00 97.8 03/08/17 16:00 79 141/90 (107) Result Diagram: 03/09/17 0441 03/08/17 5788 Objective Remarks GENERAL: Well-nourished, well-developed patient. CARDIOVASCULAR: Regular rate and rhythm without murmurs, gallops, or rubs. RESPIRATORY: Breath sounds equal bilaterally. No accessory muscle use. ABDOMEN/GI: Abdomen soft, non-tender, bowel sounds present. Incision: dressing, Clean, dry and intact. Fundus: Firm, non-tender at umbilicus. GENITOURINARY: Light to moderate bleeding, langley to bsd clear yellow EXTREMITIES: No cyanosis or edema, non-tender, without signs of DVT. Medications and IVs Current Medications Medications (Trade) Dose Ordered Sig/Cosmo Route Start Time Stop Time Status Last Admin Oxytocin 500 ml @ 100 mls/hr UNSCH X1 PRN IV 03/08/17 23:00 03/09/17 22:59 (NS Flush) 2 ml BID IV FLUSH 03/08/17 21:00 (NS Flush) 2 ml UNSCH PRN IV FLUSH 03/08/17 13:00 (Mylicon Chew) 80 mg QID PRN PO 03/08/17 13:00 (Tylenol) 650 mg Q6H PRN PO 03/08/17 13:00 (Motrin) 600 mg Q6H PRN PO 03/08/17 13:00 03/09/17 15:29 (Percocet 5-325 Mg) 1 tab Q4H PRN PO 03/08/17 13:00 (Percocet 5-325 Mg) 2 tab Q4H PRN PO 03/08/17 13:00 (Myrtle-Colace) 2 tab Q12H PRN PO 03/08/17 13:00 (Ambien) 5 mg HS PRN PO 03/08/17 13:00 (M-M-R Ii Inj) 0.5 ml ONCE ONCE SQ 03/09/17 16:00 03/09/17 16:01 (Boostrix Inj) 0.5 ml ONCE ONCE IM 03/09/17 16:00 03/09/17 16:01 (Zofran Inj) 4 mg Q6H PRN IV PUSH 03/08/17 13:00 (Stuartnatal Plus 3 ) 1 tab DAILY PO 03/09/17 09:00 03/09/17 09:15 (Calcium Gluconate Inj) 1 gm UNSCH PRN IV PUSH 03/08/17 14:00 Assessment/Plan Problem List: (1) Anemia ICD Codes: D64.9 - Anemia, unspecified (2) S/P primary low transverse ICD Codes: Z98.891 - History of uterine scar from previous surgery (3) Pre-eclampsia affecting , antepartum ICD Codes: O14.90 - Unspecified pre-eclampsia, unspecified trimester Status: Acute (4) 30 weeks gestation of ICD Codes: Z3A.30 - 30 weeks gestation of Status: Acute Assessment and Plan POD #1 pt feeling well in general, has some dizziness while in bed mag remains at 2 grams, we discontinue at 11:50 pain well managed at this time, she has not started taking any oral pain medication vss, pt afebrile WBC 34,000, pt had betamethasone prior to delivery, we will monitor pt to shower today baby small but doing well routine care Discharge Planning consier 2 days Karina Turk Mar 09, 2017 15:42
[2017-03-09] MEDS ORDERED: MEASLES, MUMPS, RUBELLA VACCINE 0.5 ML VIAL SQ ONE (16:00)
[2017-03-09] MEDS ORDERED: DIPHTH/TETANUS/ACEL PERTUSSIS (BOOSTER) 0.5 ML VIAL/PFS IM ONE (16:00)
[2017-03-09 18:36] LABS: ALBUMIN 2.7 GM/DL (3.4-5.0); ALT (GPT) 129 U/L (10-53); AST (GOT) 59 U/L (15-37); DIRECT BILIRUBIN ADULT LESS THAN 0.1 MG/DL (0.0-0.2)
[2017-03-09 18:37] LABS: ALKALINE PHOSPHATASE 184 U/L (45-117); TOTAL BILIRUBIN ADULT 0.1 MG/DL (0.2-1.0); TOTAL PROTEIN 6.1 GM/DL (6.4-8.2)
[2017-03-10] VITALS: BP 134/64; PULSE 70; RESP 18; TEMP 98.1; O2SAT 97
[2017-03-10 04:00] VITALS: BP 129/68; PULSE 72; RESP 18; TEMP 98; O2SAT 97
[2017-03-10] MEDS: IBUPROFEN 600 MG TAB PO PRN ×3 (06:34→20:27)
[2017-03-10 08:00] VITALS: BP 133/73; PULSE 77; RESP 15; TEMP 98.6; O2SAT 97
[2017-03-10 11:46] VITALS: BP 154/93; PULSE 72; RESP 16; TEMP 97.6; O2SAT 98
[2017-03-10 11:47] LABS: AUTOMATED NEUTROPHIL # 16.9 TH/MM3 (1.8-7.7); BASOPHIL % 0.2 % (0.0-2.0); EOSINOPHIL # 0.1 TH/MM3 (0-0.4); EOSINOPHIL % 0.5 % (0.0-4.0); HEMATOCRIT 33.5 % (35.0-46.0); LYMPHOCYTE # 3.3 TH/MM3 (1.0-4.8); MEAN CELL VOLUME 86.3 FL (80.0-100.0); MEAN CORPUSCULAR HEMOGLOBIN 28.4 PG (27.0-34.0); MEAN PLATELET VOLUME 9.5 FL (7.0-11.0); MONO % 8.2 % (0.0-8.0); MONOCYTE # 1.8 TH/MM3 (0-0.9); NEUT % 76.1 % (16.0-70.0); PLATELET COUNT 262 TH/MM3 (150-450); RED BLOOD COUNT 3.88 MIL/MM3 (4.00-5.30); RED CELL DISTRIBUTION WIDTH 13.6 % (11.6-17.2); WHITE BLOOD COUNT 22.2 TH/MM3 (4.0-11.0)
[2017-03-10 12:21] LABS: ALBUMIN 2.7 GM/DL (3.4-5.0); DIRECT BILIRUBIN ADULT 0.1 MG/DL (0.0-0.2)
[2017-03-10 12:23] LABS: INDIRECT BILIRUBIN 0.1 MG/DL (0.0-0.8); TOTAL BILIRUBIN ADULT 0.2 MG/DL (0.2-1.0); TOTAL PROTEIN 6.2 GM/DL (6.4-8.2)
--- NOTE | 2017-03-10 12:45 | HHI.OB ---
Subjective Post Operative Day: 2 Objective Vitals/I&O Vital Signs Date Time Temp Pulse Resp B/P (MAP) Pulse Ox O2 Delivery O2 Flow Rate FiO2 03/10/17 11:46 97.6 72 16 154/93 (113) 98 03/10/17 08:00 133/73 (93) 03/10/17 08:00 98.6 77 15 97 03/10/17 04:00 98.0 72 18 129/68 (88) 97 03/10/17 00:00 98.1 70 18 134/64 (87) 97 03/09/17 20:00 98.1 66 18 140/87 (104) 97 03/09/17 16:45 98.3 66 16 147/96 (113) Result Diagram: 03/10/17 1128 03/08/17 0508 Objective Remarks GENERAL: Well-nourished, well-developed patient. CARDIOVASCULAR: Regular rate and rhythm without murmurs, gallops, or rubs. RESPIRATORY: Breath sounds equal bilaterally. No accessory muscle use. ABDOMEN/GI: Abdomen soft, non-tender, bowel sounds present. Incision:, Clean, dry and intact. Fundus: Firm, non-tender at umbilicus. GENITOURINARY: Light to moderate bleeding, EXTREMITIES: No cyanosis or edema, non-tender, without signs of DVT. Medications and IVs Current Medications Medications (Trade) Dose Ordered Sig/Cosmo Route Start Time Stop Time Status Last Admin (NS Flush) 2 ml BID IV FLUSH 03/08/17 21:00 (NS Flush) 2 ml UNSCH PRN IV FLUSH 03/08/17 13:00 (Mylicon Chew) 80 mg QID PRN PO 03/08/17 13:00 (Tylenol) 650 mg Q6H PRN PO 03/08/17 13:00 (Motrin) 600 mg Q6H PRN PO 03/08/17 13:00 03/10/17 06:34 (Percocet 5-325 Mg) 1 tab Q4H PRN PO 03/08/17 13:00 (Percocet 5-325 Mg) 2 tab Q4H PRN PO 03/08/17 13:00 (Myrtle-Colace) 2 tab Q12H PRN PO 03/08/17 13:00 (Ambien) 5 mg HS PRN PO 03/08/17 13:00 (Zofran Inj) 4 mg Q6H PRN IV PUSH 03/08/17 13:00 03/09/17 21:26 (Stuartnatal Plus 3 ) 1 tab DAILY PO 03/09/17 09:00 03/09/17 09:15 (Calcium Gluconate Inj) 1 gm UNSCH PRN IV PUSH 03/08/17 14:00 Assessment/Plan Problem List: (1) Anemia ICD Codes: D64.9 - Anemia, unspecified (2) S/P primary low transverse ICD Codes: Z98.891 - History of uterine scar from previous surgery (3) Pre-eclampsia affecting , antepartum ICD Codes: O14.90 - Unspecified pre-eclampsia, unspecified trimester Status: Acute (4) 30 weeks gestation of ICD Codes: Z3A.30 - 30 weeks gestation of Status: Acute Assessment and Plan POD #3 pt feeling well, occasional dizziness with ambulation vs stable, will monitor labs improving pain well managed at this time with oral pain medication routine care Discharge Planning consider ely tomorrow Karina Turk Mar 10, 2017 12:44
[2017-03-10] MEDS: DOCUSATE SODIUM 50 MG/SENNA 8.6 MG TAB PO PRN (13:54)
[2017-03-10] MEDS: MULTIVIT/MIN/PREN/FOL AC/IRON PRENATAL TAB PO SCH (13:54)
[2017-03-10 15:31] VITALS: BP 160/97; PULSE 77; RESP 18; TEMP 98.3; O2SAT 99
[2017-03-10] MEDS: NIFEdipine 30 MG SUSTAINED RELEASE TAB PO SCH (16:40)
[2017-03-10] MEDS ORDERED: NIFE30TA8 PO (17:22)
[2017-03-10] MEDS ORDERED: IBUP-232 PO (17:22)
[2017-03-10] MEDS ORDERED: OXYC1TAB63 PO (17:22)
[2017-03-10 18:00] VITALS: BP 152/89; PULSE 71
[2017-03-10] MEDS: SODIUM CHLORIDE 0.9% FLUSH 10 ML FLUSH IV FLUSH SCH (20:05)
[2017-03-10] MEDS: ACETAMINOPHEN 325 MG TAB PO PRN (20:28)
[2017-03-11] MEDS: ACETAMINOPHEN 325 MG TAB PO PRN (05:46)
[2017-03-11] MEDS: IBUPROFEN 600 MG TAB PO PRN (05:46)
[2017-03-11] MEDS: DOCUSATE SODIUM 50 MG/SENNA 8.6 MG TAB PO PRN (05:47)
[2017-03-11 08:00] VITALS: BP 142/71; PULSE 68; RESP 15; TEMP 98.2; O2SAT 99
[2017-03-11] MEDS: SODIUM CHLORIDE 0.9% FLUSH 10 ML FLUSH IV FLUSH SCH (09:00)
[2017-03-11] MEDS: MULTIVIT/MIN/PREN/FOL AC/IRON PRENATAL TAB PO SCH (09:00)
[2017-03-11] MEDS: NIFEdipine 30 MG SUSTAINED RELEASE TAB PO SCH (09:13)
--- NOTE | 2017-03-11 11:28 | HHI.OB ---
Subjective Post Operative Day: 4 Remarks ready for discharge on procardia BPs are better and no headaches or symptoms Objective Vitals/I&O Vital Signs Date Time Temp Pulse Resp B/P (MAP) Pulse Ox O2 Delivery O2 Flow Rate FiO2 03/11/17 08:00 98.2 68 15 142/71 (94) 99 03/10/17 18:00 71 03/10/17 18:00 152/89 (110) 03/10/17 15:31 77 18 160/97 (118) 03/10/17 15:31 98.3 99 03/10/17 11:46 97.6 72 16 154/93 (113) 98 Result Diagram: 03/10/17 1128 03/08/17 0508 Objective Remarks GENERAL: Well-nourished, well-developed patient. CARDIOVASCULAR: Regular rate and rhythm without murmurs, gallops, or rubs. RESPIRATORY: Breath sounds equal bilaterally. No accessory muscle use. ABDOMEN/GI: Abdomen soft, non-tender, bowel sounds present. Incision:, Clean, dry and intact. Fundus: Firm, non-tender at umbilicus. GENITOURINARY: Light to moderate bleeding, EXTREMITIES: No cyanosis or edema, non-tender, without signs of DVT. Medications and IVs Current Medications Medications (Trade) Dose Ordered Sig/Cosmo Route Start Time Stop Time Status Last Admin (NS Flush) 2 ml BID IV FLUSH 03/08/17 21:00 (NS Flush) 2 ml UNSCH PRN IV FLUSH 03/08/17 13:00 (Mylicon Chew) 80 mg QID PRN PO 03/08/17 13:00 (Tylenol) 650 mg Q6H PRN PO 03/08/17 13:00 03/11/17 05:46 (Motrin) 600 mg Q6H PRN PO 03/08/17 13:00 03/11/17 05:46 (Percocet 5-325 Mg) 1 tab Q4H PRN PO 03/08/17 13:00 (Percocet 5-325 Mg) 2 tab Q4H PRN PO 03/08/17 13:00 (Myrtle-Colace) 2 tab Q12H PRN PO 03/08/17 13:00 03/11/17 05:47 (Ambien) 5 mg HS PRN PO 03/08/17 13:00 (Zofran Inj) 4 mg Q6H PRN IV PUSH 03/08/17 13:00 03/09/17 21:26 (Stuartnatal Plus 3 ) 1 tab DAILY PO 03/09/17 09:00 03/10/17 13:54 (Calcium Gluconate Inj) 1 gm UNSCH PRN IV PUSH 03/08/17 14:00 (Procardia Xl) 30 mg DAILY PO 03/10/17 17:00 03/11/17 09:13 Assessment/Plan Problem List: (1) Anemia ICD Codes: D64.9 - Anemia, unspecified (2) S/P primary low transverse ICD Codes: Z98.891 - History of uterine scar from previous surgery (3) Pre-eclampsia affecting , antepartum ICD Codes: O14.90 - Unspecified pre-eclampsia, unspecified trimester Status: Acute (4) 30 weeks gestation of ICD Codes: Z3A.30 - 30 weeks gestation of Status: Acute Assessment and Plan POD #3 pt feeling well, occasional dizziness with ambulation vs stable, will monitor labs improving pain well managed at this time with oral pain medication routine care POD 4 ready for discharge on BP meds Discharge Planning consider dc tomorrow Becca Peterson MD Mar 11, 2017 11:28
== END 2017-03-11 12:04 | disposition home or self-care (01) | DRG 766 ==
LOC: HOBED 12:19 → H2EA 14:19 → OBSVTOIN 14:29 → H1EA 03-09 13:17
PROVIDERS: ADMIT Obstetrics & Gynecology; ATTEND Obstetrics & Gynecology
PROC: 10D00Z1 Extraction of Products of Conception, Low, Open Approach (ICD-10-PCS; principal; 2017-03-08)
PROC: 0UB90ZZ Excision of Uterus, Open Approach (ICD-10-PCS; 2017-03-08)
DX: O14.14 Severe pre-eclampsia complicating childbirth (principal); O34.13 Maternal care for benign tumor of corpus uteri, third trimester; D25.9 Leiomyoma of uterus, unspecified; D64.9 Anemia, unspecified; O99.02 Anemia complicating childbirth; Z37.0 Single live birth; Z3A.30 30 weeks gestation of pregnancy
CPT/HCPCS: 59025; 76816; 76819; 76820; 80053; 80076; 81001; 82570; 84156; 84550; 85007; 85025; 85027; 86850; 86900; 86901; 88305; 88307; 96372; J0131; J0690; J0702; J1200; J2274; J2405; J2590; J3010; J3475; J7120